=== PATIENT | male | born 1985 | race Caucasian/White ===

== ENCOUNTER 2017-12-04 14:15 | Emergency (ER) | payer BC ==
[2017-12-04] MEDS ORDERED: Fluorescein Sod TOPICAL 0.6* 0.6 MG TEST OPHTHALMIC ONE (14:55)
[2017-12-04 14:56] VITALS: BP 146/83
--- NOTE | 2017-12-04 15:47 | UC ---
Eye Complaint HPI - HPI Summary HPI Summary: Patient is a 32-year-old male presenting to the with left eye injury. He states last evening his daughter accidentally scratched the cornea of his eye. It is been approximately 10 hours he continues to have injection, erythema and tearing from the eye. He also endorses a moderate amount of pain. Symptoms improved with closing the eye and worsened with opening the eye or blinking. No entrapment. There appears to be no apparent foreign body. Denies any contact usage. - History of Current Complaint Chief Complaint: UCEye Stated Complaint: EYE INJURY Time Seen by Provider: 12/04/17 14:54 Hx Obtained From: Patient Onset/Duration: Sudden Onset Timing: Constant Severity Initially: Moderate Severity Currently: Moderate Pain Intensity: 0 Pain Scale Used: 0-10 Numeric Location of Injury: Conjunctiva Character: Dull, Foreign Body Sensation Aggravating Factor(s): Blinking Associated Signs And Symptoms: Positive: Drainage (Clear) - Risk Factors Penetrating Injury Risk Factor: Negative Globe Rupture Risk Factors: Negative Acute Glaucoma Risk Factors: Negative Optic Artery Occlusion Risk Factors: Negative - Allergies/Home Medications Allergies/Adverse Reactions: Allergies Allergy/AdvReac Type Severity Reaction Status Date / Time Penicillins Allergy Hives Verified 12/04/17 14:57 Home Medications: Home Medications Cholecalciferol TAB* [Vitamin D TAB*] 1,000 unit PO DAILY 12/04/17 [History Confirmed 12/04/17] FLUoxetine CAP* [Prozac CAP*] 20 mg PO DAILY 12/04/17 [History Confirmed ] PMH/Surg Hx/FS Hx/Imm Hx Previously Healthy: Yes - Surgical History Surgical History: None - Social History Occupation: Employed Full-time Lives: With Family Alcohol Use: Daily Substance Use Type: Excessive Caffeine Smoking Status (MU): Former Smoker Review of Systems Constitutional: Negative Skin: Negative Eyes: Other - abrasion to the L cornea with injection ENT: Negative Respiratory: Negative Cardiovascular: Negative Motor: Negative Neurovascular: Negative Neurological: Negative Is Patient Immunocompromised?: No All Other Systems Reviewed And Are Negative: Yes Physical Exam Triage Information Reviewed: Yes Appearance: Well-Appearing, Well-Nourished Vital Signs: Initial Vital Signs Temp 99.2 F 12/04/17 14:53 Pulse 75 12/04/17 14:53 Resp 20 12/04/17 14:53 BP 146/83 12/04/17 14:53 Pulse Ox 97 12/04/17 14:53 Vital Signs Reviewed: Yes Eyes: Positive: Other: - corbeal abrasion Neck exam: Normal Neck: Positive: Supple, Nontender, No Lymphadenopathy Respiratory Exam: Normal Respiratory: Positive: Chest non-tender, Lungs clear Cardiovascular Exam: Normal Cardiovascular: Positive: RRR Musculoskeletal Exam: Normal Musculoskeletal: Positive: Strength Intact Psychological Exam: Normal Psychological: Positive: Normal Response To Family Skin Exam: Normal Eye Complaint Course/Dx - Course Course Of Treatment: During the course of treatment, the patient is evaluated for left corneal abrasion. He feels there is a FB in the eye. After scanning the eye with fluorosceine uptake using tetracaine analgesic, the upper and lower lids retracted to allow for assessment of FB under the eye lids. No obvious perforation with teardrop pupil, vitreous extrusion. There is no apparent corneal abrasion to the left eye with injection and tearing. Patient is given polymyxin trimethoprim drops and is encouraged to follow up with Dr. Mike within 1-2 days. He is also given pain control. - Differential Dx/Diagnosis Provider Diagnoses: Corneal abrasion Discharge - Sign-Out/Discharge Documenting (check all that apply): Discharge/Admit/Transfer - Discharge Plan Condition: Stable Disposition: HOME Prescriptions: Polymyx/Trimethoprim OPTH* [Polytrim OPHTH*] 1 drop LEFT EYE Q3H #1 btl traMADol TAB* [Ultram*] 50 mg PO Q8H PRN #12 tab MDD 3 PRN Reason: Pain Patient Education Materials: Corneal Abrasion (ED) Referrals: No Primary Care Phys,NOPCP [Primary Care Provider] - Amari iMke MD [Medical Doctor] - Additional Instructions: All we were working out regarding last night I noticed right with noticed hour as I didn't recommend prophylactic and definitely not course course I noticed I' ve been no unknown how long There is no give him 3 weeks Please follow-up with Dr. Mike antibiotics eye drops for the eye 4 times daily 7 days - Billing Disposition and Condition Condition: STABLE Disposition: HOME
== END 2017-12-04 15:21 | disposition home or self-care (01) ==
LOC: UCEAST 14:15
DX: S05.02XA Injury of conjunctiva and corneal abrasion without foreign body, left eye, initial encounter (principal); W50.4XXA Accidental scratch by another person, initial encounter; Y93.9 Activity, unspecified; Y92.9 Unspecified place or not applicable; Z88.0 Allergy status to penicillin; Z87.891 Personal history of nicotine dependence
CPT/HCPCS: 99202; G0463